=== PATIENT | female | born 1950 | race Caucasian/White ===

== ENCOUNTER → 2018-07-11 | Outpatient (CLI) | payer OTHER ==
[~2018-07-11] MED LIST: ASPIRIN EC81 M1; ULTRAM 50MG TAB50 MG PO; VITAMIN D400 UNI1
== END ==
LOC: M.RAD 07-09 14:00
DX: Z12.31 Encounter for screening mammogram for malignant neoplasm of breast (principal)

== ENCOUNTER → 2020-09-07 | Outpatient (CLI) | payer OTHER | LOC: M.RAD 08-24 16:12 | PROVIDERS: ATTEND Family Medicine | DX: Z12.31 Encounter for screening mammogram for malignant neoplasm of breast (principal); Z68.1 Body mass index [BMI] 19.9 or less, adult; M81.0 Age-related osteoporosis without current pathological fracture; J44.9 Chronic obstructive pulmonary disease, unspecified; I25.2 Old myocardial infarction; Z87.891 Personal history of nicotine dependence; I25.10 Atherosclerotic heart disease of native coronary artery without angina pectoris; E78.5 Hyperlipidemia, unspecified; F32.1 Major depressive disorder, single episode, moderate; Z87.01 Personal history of pneumonia (recurrent); Z78.0 Asymptomatic menopausal state; R25.2 Cramp and spasm ==

== ENCOUNTER → 2020-09-09 | Outpatient (CLI) | payer OTHER | LOC: M.ULTRA 13:00 | PROVIDERS: ATTEND Family Medicine | DX: M79.605 Pain in left leg (principal); M79.604 Pain in right leg; M81.0 Age-related osteoporosis without current pathological fracture; I25.2 Old myocardial infarction; J44.9 Chronic obstructive pulmonary disease, unspecified; E78.5 Hyperlipidemia, unspecified; I70.209 Unspecified atherosclerosis of native arteries of extremities, unspecified extremity; Z68.1 Body mass index [BMI] 19.9 or less, adult; Z87.01 Personal history of pneumonia (recurrent); Z78.0 Asymptomatic menopausal state; R25.2 Cramp and spasm ==